=== PATIENT | female | born 1980 | race Caucasian/White ===

== ENCOUNTER 2018-08-09 03:52 | Emergency (ER) | payer SELFPAY ==
[~2018-08-09] VITALS: Ht 170.2 cm; Wt 82.7 kg
[2018-08-09 04:01] VITALS: Ht 170.2 cm; Wt 82.7 kg
[2018-08-09] MEDS ORDERED: ACETAMINOPHEN 325 MG TAB PO ONE (04:30)
[2018-08-09] MEDS ORDERED: IBUP-1542 PO (06:06)
--- NOTE | 2018-08-09 06:09 | ERD ---
ER Documentation Chief Complaint Chief Complaint lower abdominal pain x 1 week, states 3 months . denies vb HPI 37-year-old female presents with lower abdominal pain for last week. She states that she is approximately 3 weeks . She denies vaginal bleeding. She denies fevers. She said intermittent nausea nonbilious vomiting. She denies urinary complaints. Pain is in the mid lower abdomen. ROS All systems reviewed and are negative except as per history of present illness. Medications Home Meds Active Scripts Ibuprofen* (Motrin*) 600 Mg Tab, 600 MG PO Q6, #20 TAB Prov:NUPUR FLOYD MD 08/09/18 Allergies Allergies: Coded Allergies: No Known Drug Allergies (Verified Allergy, Unknown, 08/09/18) PMhx/Soc History of Surgery: Yes ( X2, CHOLY) Hx Alcohol Use: No Hx Substance Use: No Hx Tobacco Use: No Smoking Status: Never smoker FmHx Family History: No diabetes, No coronary disease, No other Physical Exam Vitals Vital Signs Date Temp Pulse Resp B/P (MAP) Pulse Ox O2 O2 Flow FiO2 Time Delivery Rate 08/09/18 99.1 94 18 122/71 100 04:01 (88) Physical Exam Const: No acute distress Head: Atraumatic Eyes: Normal Conjunctiva ENT: Normal External Ears, Nose and Mouth. Neck: Full range of motion. No meningismus. Resp: Clear to auscultation bilaterally Cardio: Regular rate and rhythm, no murmurs Abd: Soft, mild mid lower mid abdominal tenderness without rebound and no tenderness McBurney's point no Osorio sign. Non distended. Normal bowel sounds Skin: No petechiae or rashes Back: No midline or flank tenderness Ext: No cyanosis, or edema Neur: Awake and alert Psych: Normal Mood and Affect Results 24 hrs Laboratory Tests Test 08/09/18 04:32 Urine Color STRAW Urine Clarity CLEAR Urine pH 6.0 Urine Specific [place] 1.003 Urine Ketones NEGATIVE mg/dL Urine Nitrite NEGATIVE mg/dL Urine Bilirubin NEGATIVE mg/dL Urine Urobilinogen NEGATIVE mg/dL Urine Leukocyte Esterase NEGATIVE Sofía/ul Urine Microscopic RBC 1 /HPF Urine Microscopic WBC 0 /HPF Urine Hemoglobin 1+ mg/dL Urine Glucose NEGATIVE mg/dL Urine Total Protein NEGATIVE mg/dl Urine Test NEGATIVE Current Medications Medications Dose Sig/Gabrielle Start Time Status Last (Trade) Ordered Route PRN Stop Time Admin Dose Reason Admin 650 mg ONCE ONCE 08/09/18 DC 08/09/18 Acetaminophen PO 04:30 08/09/18 04:33 (Tylenol 04:31 Tab) Procedures/MDM Urine is negative for significant acute abnormalities. Pelvic ultrasound shows no intrauterine . Right ovary is not visualized. There is noted fibroids and a cyst on the left ovary. There is no evidence of torsion. Urine hCG is negative. Patient states that she has not had any primary care and is only believes she is from a patency test in [place]. Patient presents with lower abdominal pain for the last week. Current signs or symptoms do not suggest appendicitis, tubo-ovarian abscess, surgical abdomen. She may have pain from ovarian cyst or fibroids. Pain is mild is not consistent with ovarian torsion, there is no fever to suggest abscess or bacterial infection. Will treat with ibuprofen, recommendations for return precautions for fevers, vomiting, worsening pain otherwise with primary care doctor. she was Referred to the local [facility] for further evaluation and treatment and [facility]. Departure Diagnosis: Primary Impression: Abdominal pain Abdominal location: lower abdomen, unspecified Qualified Codes: R10.30 - Lower abdominal pain, unspecified Condition: Stable Patient Instructions: Abdominal Pain, Abdominal Pain, Possible Appendicitis (Female) Referrals: NO PRIMARY,CARE PHYSICIAN (PCP) [facility] Usted se ramos hecho un examen mdico de control que le indica que no est en jose condicin que requiera tratamiento urgente en el Departamento de Emergencia. Un estudio ms profundo y el tratamiento de napier condicin pueden esperar sin ningn riesgo hasta que usted sea atendida/o en el consultorio de napier mdico o jose clnica. Es responsabilidad suya arreglar jose raine para el seguimiento del nguyen. MANEJO DE CONDICIONES NO URGENTES EN EL FUTURO 1) Si usted tiene un mdico de atencin primaria: Usted debera llamar a napier mdico de atencin primaria antes de venir al departamento de emergencia. Despus de las horas de consultorio, napier doctor o napier asociado/a est disponible por telfono. El mdico o enfermero de rylee en el servicio telefnico puede asesorarle por greer medio para atender el problema, o nguyen contrario se puede programar jose raine. 2) Si usted no tiene un mdico de atencin primaria: Llame al mdico o clnica de referencia que aparece abajo liset las horas de consultorio para hacer jose raine para que le vean. CLINICAS: [facility] [phone] [facility] [id number] [facility] [phone] [facility] [phone] [facility] [phone] [id number] [facility] [phone] [address] Additional Instructions: no sta emarazada. Cheque otro vez con napier doctor primario en el proximo aguilar or regresa para mas o nueva simptomas. NUPUR FLOYD MD Aug 09, 2018 06:09
[2018-08-09 06:22] VITALS: BP 112/58; PULSE 86; RESP 17
== END 2018-08-09 06:24 | disposition home or self-care (01) ==
LOC: FTE 03:52
DX: O26.891 Other specified pregnancy related conditions, first trimester (principal); R10.30 Lower abdominal pain, unspecified; Z3A.01 Less than 8 weeks gestation of pregnancy
CPT/HCPCS: 76801; 76817; 81001; 84703